=== PATIENT | female | born 2000 | race Caucasian/White ===

== ENCOUNTER 2022-05-06 13:07 | Emergency (ER) | payer OTHER, SELFPAY ==
--- NOTE | ~2022-05-06 | XR_ITS ---
EXAM: XR lumbar spine min 4V DATE: 05/06/2022 14:19 HISTORY: GROUND LEVEL FALL ONTO BACK X 3 DAYS AGO. PAIN . COMPARISON: None available. FINDINGS: 5 nonrib-bearing lumbar-type vertebral bodies. Rudimentary disc formation at S1-S2. Pedicl es intact. Normal vertebral body alignment. Vertebral body heights preserved. Disc spaces maintained. Normal facets and posterior elements. No fracture or dislocation. IMPRESSION: No radiographic evidence of acute fracture or traumatic malalignment in the lumbar spine. . Reviewed, dictated and finalized at location K. IMPRESSION: No radiographic evidence of acute fracture or traumatic malalignmen t in the lumbar spine..
--- NOTE | ~2022-05-06 | XR_ITS ---
EXAM: XR pelvis 1-2V DATE: 05/06/2022 14:19 HISTORY: GROUND LEVEL FALL ONTO BACK X 3 DAYS AGO. PAIN . COMPARISON: None available. FINDINGS: Normal mineralization. No fracture or dislocation. No lytic or blastic lesion. Joint space s are maintained. No erosion or periosteal change. Soft tissues within normal limits. IMPRESSION: No acute osseous finding in the pelvis. Reviewed, dictated and finalized at location K.
--- NOTE | ~2022-05-06 | CT_ITS ---
EXAMINATION: CT brain wo con DATE: 05/06/2022 14:08 INDICATION: Posterior head injury. TECHNIQUE: Computed tomography (CT) of the head was performed without intravenous contrast. The mA wa s adjusted according to patient size. Iterative reconstruction technique was employed. The dose-lengt h product was 605.33 mGy-cm. COMPARISON: None FINDINGS: There is no intracranial hemorrhage, acute infarction, or abnormal intracranial mass lesion . The ventricles are normal in size. There is mucosal thickening in left ethmoid sinus. The mastoid a ir cells are normal. The orbits are normal. IMPRESSION: 1. Normal brain. Reviewed, dictated and finalized at location A. IMPRESSION: 1. Normal brain.
--- NOTE | ~2022-05-06 | CT_ITS ---
EXAMINATION: CT cervical spine wo con DATE: 05/06/2022 14:08 INDICATION: fall TECHNIQUE: Computed tomography (CT) of the cervical spine was performed without intravenous contrast. Automated exposure control and iterative reconstruction technique were employed. The dose-length pro duct was 202.20 mGy-cm. COMPARISON: None FINDINGS: Vertebral Body Alignment: Reversal of the normal cervical lordosis as can occur with positioning or s pasm. Otherwise intact. Craniocervical and atlantoaxial alignment: No degenerative change. Alignment intact. Osseous structures/fracture: No evidence of a lytic or blastic process in the visualized spine. No e vidence of acute fracture. Cervical soft tissues: The paraspinal soft tissues planes are maintained. Degenerative changes: No significant degenerative changes. IMPRESSION: No acute fracture or traumatic malalignment in the cervical spine. Reviewed, dictated and finalized at location K.
--- NOTE | ~2022-05-06 | XR_ITS ---
EXAM: XR thoracic spine 3V DATE: 05/06/2022 14:19 HISTORY: GROUND LEVEL FALL ONTO BACK X 3 DAYS AGO. PAIN . COMPARISON: None available. FINDINGS: Vertebral body alignment intact. Vertebral body heights preserved. No disc space narrowing . No traumatic malalignment or fracture. Visualized lung parenchyma is clear. IMPRESSION: No radiographic evidence of acute fracture or traumatic malalignment in the thoracic spin e. Reviewed, dictated and finalized at location K. IMPRESSION: No radiographic evidence of acute fracture or traumatic malalignmen t in the thoracic spine.
[2022-05-06 13:13] VITALS: BP 111/65; PULSE 95; RESP 16; TEMP 36.4; O2SAT 98
--- NOTE | 2022-05-06 14:27 | ED.FALL ---
HPI - Fall General Chief Complaint: Fall Stated Complaint: Fall, headache Time Seen by Provider: 05/06/22 13:10 Source: RN notes reviewed History of Present Illness HPI Narrative: Patient presents emergency department from home for head and back pain. Patient states that 4 days ago on Friday the she was walking outside when she slipped on the metal grate on the sidewalk and fell backwards she states she struck her head and since that time has been having severe headache as well as pain in her neck down through her upper back and into her lower back patient states that pain is worse with movement of the neck she denies any loss of consciousness she denies any vision changes, chest pain, shortness of breath, abdominal pain nausea vomiting or any other symptoms. Denies any numbness or tingling of extremities. States she not take any pain medication today Related Data Allergies Allergy/AdvReac Type Severity Reaction Status Date / Time No Known Allergies Allergy Verified 05/06/22 13:16 Review of Systems Review of Systems: Gen.: Denies fevers or chills Eyes: Denies eye pain or visual change ENT: Denies congestion Respiratory: Denies shortness of breath CV: Denies chest pain GI: Denies abdominal pain nausea, emesis Musculoskeletal: See HPI Neuro: Reports headache denies numbness or tingling Skin: Denies rash Except as documented, all other systems reviewed and negative [facility] Past Medical History Medical History (Updated 05/06/22 @ 14:30 by Ronaldo Henry DO) Patient denies significant medical history Social History Social History (Updated 05/06/22 @ 14:29 by Ronaldo Henry DO) Smoking status: Never smoker Exam Narrative: APPEARANCE: No acute distress, nontoxic, resting in bed EYES: EOMI HEENT: Normocephalic, atraumatic, TMs clear bilaterally nares patent Neck: Supple no midline chest palpation tender palpation bilateral paravertebral muscles C4-7 RESPIRATORY: No respiratory distress Clear to auscultation bilaterally with no rhonchi wheezing or rales. CARDIOVASCULAR: Regular rate and rhythm without murmurs rubs or gallops. ABDOMINAL: Soft, nontender, nondistended, no rebound or guarding MUSCULOSKELETAl: Moves all extremities. No clubbing, cyanosis or edema. No tenderness of bilateral upper and lower extremities with full range of motion of both Back: No midline thoracic or lumbar tenderness palpation tender palpation diffusely throughout the bilateral thoracic and lumbar paravertebral muscles NEURO: Awake and alert. Following commands, speech normal, no focal deficits SKIN:: Warm, dry. No rashes lesions or abrasions PSYCHIATRIC: Normal affect/mood, Course Course Emergency Course: Discussed with patient results of workup and diagnosis. Discussed need for follow-up with primary care, proper use of medication, and reasons to return to the emergency department. Patient understands and agrees to current treatment plan Vital Signs Vital signs: Vital Signs Temperature 97.5 F L 05/06/22 13:13 Pulse Rate 95 05/06/22 13:13 Respiratory Rate 16 05/06/22 13:13 Blood Pressure 111/65 05/06/22 13:13 Pulse Oximetry 98 05/06/22 13:13 Temperature 97.5 F L 05/06/22 13:13 Pulse Rate 95 05/06/22 13:13 Respiratory Rate 16 05/06/22 13:13 Blood Pressure 111/65 05/06/22 13:13 Pulse Oximetry 98 05/06/22 13:13 MDM - Fall Imaging Data Radiologist's impression: ITS Impressions Head CT 05/06/22 14:08 IMPRESSION: 1. Normal brain. Cervical Spine CT 05/06/22 14:09 IMPRESSION: No acute fracture or traumatic malalignment in the cervical spine. Pelvis X-Ray 05/06/22 14:21 IMPRESSION: No acute osseous finding in the pelvis. Thoracic Spine X-Ray 05/06/22 14:23 IMPRESSION: No radiographic evidence of acute fracture or traumatic malalignment in the thoracic spine. Lumbar Spine X-Ray 05/06/22 14:24
[2022-05-06 14:36] VITALS: BP 128/74; PULSE 68; RESP 14; O2SAT 98
== END 2022-05-06 14:41 | disposition home or self-care (01) ==
PROVIDERS: Emergency Provider Emergency Medicine
DX: S00.93XA Contusion of unspecified part of head, initial encounter (principal); S16.1XXA Strain of muscle, fascia and tendon at neck level, initial encounter; S39.92XA Unspecified injury of lower back, initial encounter; S29.9XXA Unspecified injury of thorax, initial encounter; W01.0XXA Fall on same level from slipping, tripping and stumbling without subsequent striking against object, initial encounter
CPT/HCPCS: 70450; 72072; 72110; 72125; 72170; 99284